=== PATIENT | male | born 1950 | race African-American/Black ===

== ENCOUNTER 2018-01-07 08:02 | Emergency (ER) | payer MEDICARE, OTHER ==
[2018-01-07] MEDS ORDERED: Lidocaine Viscous Sol 2% 15 ml UD Cup ONE (08:22)
[2018-01-07] MEDS ORDERED: Mag-Al Plus 1200 MG/1200 MG/120 MG/30 ML UDCUP ONE (08:22)
[2018-01-07] MEDS ORDERED: Dexamethasone 4 mg/ml Vial ONE (08:49)
[2018-01-07] MEDS ORDERED: AMOXicillin 250 MG CAP ONE (08:49)
--- NOTE | 2018-01-07 20:09 | RAD ---
CHEST TWO VIEWS 01/07/18 No prior films were available for comparison. The heart is normal in size and the lungs are clear. th ere is no sign of pneumonia or pleural effusion. The mediastinum was unremarkable. A right paratrache al density is most likely tortuous vessels. The lungs may be slightly hyperexpanded. Mild degenerativ e changes are noted in the right shoulder. IMPRESSION: No acute thoracic findings. POS: HOME
== END 2018-01-07 08:56 | disposition home or self-care (01) ==
LOC: BURERS 08:02
DX: J20.9 Acute bronchitis, unspecified (principal); I25.10 Atherosclerotic heart disease of native coronary artery without angina pectoris; E11.9 Type 2 diabetes mellitus without complications; E78.2 Mixed hyperlipidemia; I10 Essential (primary) hypertension; Z87.891 Personal history of nicotine dependence
CPT/HCPCS: 71046; J1100

== ENCOUNTER 2018-09-14 20:48 | Emergency (ER) | payer MEDICARE, OTHER ==
[2018-09-14] MEDS ORDERED: hydrOXYzine 25 MG TAB ONE (21:00)
[2018-09-14] MEDS ORDERED: Famotidine 20 MG TAB ONE ×2 (21:25)
== END 2018-09-14 21:26 | disposition home or self-care (01) ==
LOC: BURERS 20:48
DX: K12.2 Cellulitis and abscess of mouth (principal); E11.9 Type 2 diabetes mellitus without complications; E78.5 Hyperlipidemia, unspecified; E78.1 Pure hyperglyceridemia; I10 Essential (primary) hypertension; I25.10 Atherosclerotic heart disease of native coronary artery without angina pectoris; Z87.891 Personal history of nicotine dependence; Z79.899 Other long term (current) drug therapy; Z79.82 Long term (current) use of aspirin; Z79.84 Long term (current) use of oral hypoglycemic drugs
CPT/HCPCS: 99283

== ENCOUNTER 2019-06-09 15:44 | Emergency (ER) | payer MEDICARE, OTHER ==
[2019-06-09] MEDS ORDERED: Lidocaine 1% PF 5 ML VIAL ONE (15:59)
--- NOTE | 2019-06-09 17:29 | RAD ---
LEFT FIFTH DIGIT 06/09/19 Three views show no major fracture or joint abnormality. There is a tiny kajal of bone seen on the pa lmar aspect of the distal finger in the soft tissues. This could be a new or old foreign body or avul suellen from injury. It is probably more likely old than new. IMPRESSION: No definite acute fracture seen. See comments above. POS: HOME
== END 2019-06-09 16:44 | disposition home or self-care (01) ==
LOC: BURERS 15:44
DX: S61.217A Laceration without foreign body of left little finger without damage to nail, initial encounter (principal); I25.10 Atherosclerotic heart disease of native coronary artery without angina pectoris; E11.9 Type 2 diabetes mellitus without complications; E78.1 Pure hyperglyceridemia; I10 Essential (primary) hypertension; Z87.891 Personal history of nicotine dependence; Z79.84 Long term (current) use of oral hypoglycemic drugs; Z79.899 Other long term (current) drug therapy; Z79.891 Long term (current) use of opiate analgesic; W20.8XXA Other cause of strike by thrown, projected or falling object, initial encounter
CPT/HCPCS: 12002; 90471; J2001